=== PATIENT | male | born 1970 | race Caucasian/White ===

== ENCOUNTER → 2018-06-19 15:00 | Emergency (ER) | payer SELFPAY ==
--- NOTE | 2018-06-19 15:27 | ED ---
Substance Abuse/Use - HPI Summary HPI Summary: Patient is a 48 y/o M presenting to ED with philanthropy officer for legal blood draw. resident medical officer reports that he had observed the patient to be driving over the speed limit and had pulled the patient over. He reports that the patient had failed roadside sobriety tests administered by drug evaluation expert. Patient was charged with DWI, car towed. The patient states, "I don't know what happened." He notes that he had smoked marijuana at around 0400 today and was driving back to home from work. He states, "I feel good." and "This is bullshit." He has no medical complaints, he denies chest pain, dizziness, and SOB. 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 He denies smoking cigarettes and alc consumption. No PSHx, no home medications, no allergies to medicine. He notes that mother in MVA but otherwise states he does not know FMHx. On triage, pain is denied, nothing is noted to aggravate/alleviate Sx. Home medications and allergies are reviewed. - History Of Current Complaint Chief Complaint: EDGeneral Stated Complaint: BLOOD DRAW Time Seen by Provider: 06/19/18 15:24 Hx Obtained From: Patient Onset/Duration of Drug/ETOH Abuse: Hours - smoked marijuana 0400 Ingestion History: Type/Name Of Drug - marijuana, Approximate Time Of Ingestion - 0400 Overdose Characteristics: Inhalation Severity Currently: None - pain denied Character: Frustrated Aggravating Factor(s): Nothing Alleviating Factor(s): Nothing Associated Signs And Symptoms: Negative PMH/Surg Hx/FS Hx/Imm Hx Sensory History: Denies: Hx Legally Blind, Hx Deafness Opthamlomology History: Denies: Hx Legally Blind EENT History: Denies: Hx Deafness - Surgical History Surgery Procedure, Year, and Place: no past surgeries Infectious Disease History: No Infectious Disease History: Denies: Traveled Outside the [place] in Last 30 Days - Family History Known Family History: Positive: Unknown - he notes mother of MVA, otherwise unsure of FMHx (poor historian) - Social History Alcohol Use: None Substance Use Type: Reports: Marijuana Smoking Status (MU): Never Smoked Tobacco Review of Systems Positive: Other - PRESENTING FOR LEGAL BLOOD DRAW Negative: Chest Pain Negative: Shortness Of Breath Neurological: Other - NEGATIVE - DIZZINESS All Other Systems Reviewed And Are Negative: Yes Physical Exam - Summary Physical Exam Summary: Appearance: Well-appearing, no pain distress, well-nourished, appears intoxicated Skin: Warm, color reflects adequate perfusion, dry Head: Normal Head/Face inspection, atraumatic Eyes: Conjunctiva glazed, pinpoint pupils ENT: Normal inspection Neck: Supple, no nodes, no JVD Respiratory: Lungs clear, normal breath sounds, no respiratory distress Cardio: RRR, No murmur, pulses normal, brisk capillary refill Abdomen: Soft, nontender Bowel sounds: Present Musculoskeletal: Strength Intact/ROM intact, no calf tenderness, no edema. Psychological: Normal Neuro: Alert, muscle tone normal, no focal deficit Triage Information Reviewed: Yes Vital Signs On Initial Exam: Initial Vitals Temp Pulse Resp BP Pulse Ox 99.1 F 58 16 147/85 100 06/19/18 15:04 06/19/18 15:04 06/19/18 15:04 06/19/18 15:04 06/19/18 15:04 Vital Signs Reviewed: Yes Diagnostics - Vital Signs Vital Signs Temp Pulse Resp BP Pulse Ox 06/19/18 15:04 99.1 F 58 16 147/85 100 - Laboratory Lab Statement: Any lab studies that have been ordered have been reviewed, and results considered in the medical decision making process. Course/Dx - Course Course Of Treatment: Patient is a 48 y/o M presenting to ED with philanthropy officer for legal blood draw. resident medical officer reports that he had observed the patient to be driving over the speed limit and had pulled the patient over. He reports that the patient had failed roadside sobriety tests administered by drug evaluation expert. Patient was charged with DWI, car towed. The patient states, "I don't know what happened." He notes that he had smoked marijuana at around 0400 today and was driving back to home from work. He states, "I feel good." and "This is bullshit." He has no medical complaints, he denies chest pain, dizziness, and SOB. 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 He denies smoking cigarettes and alc consumption. No PSHx, no home medications, no allergies to medicine. He notes that mother in MVA but otherwise states he does not know FMHx. On physical exam, no pain distress, patient has pinpoint pupils, glazed conjunctiva. He appears intoxicated. Blood sample was obtained from patient. He was discharged to law enforcement. Dx of encounter for blood test, encounter for medical screening exam. - Diagnoses Provider Diagnoses: Encounter for blood test, Encounter for medical screening examination Discharge - Sign-Out/Discharge Documenting (check all that apply): Patient Departure - discharge - Discharge Plan Condition: Stable Disposition: HOME Patient Education Materials: Normal Exam (ED) Referrals: [facility] [Outside] - 2 Days [facility] [Outside] - As Soon As Possible Additional Instructions: You had a legal blood draw today. You did not ask for evaluation or treatment of any medical conditions. Return to the ER if you have any new or worsening symptoms. You may be seen in our [facility] clinic if you need a doctor urgently. You should get established with a primary care provider. - Attestation Statements Document Initiated by Scribe: Yes Documenting Scribe: LOS RANDALL Provider For Whom Patricia is Documenting (Include Credential): MIKE MOHR MD Scribe Attestation: LOS Saenz , scribed for MIKE MOHR MD on 06/19/18 at 1917. Status of Scribe Document: Ready
[2018-06-19 15:51] VITALS: BP 00/00
== END | disposition home or self-care (01) ==
LOC: ED 15:00
DX: Z02.83 Encounter for blood-alcohol and blood-drug test (principal)
CPT/HCPCS: 99282